=== PATIENT | female | born 1990 | race Caucasian/White ===

== ENCOUNTER 2018-07-15 00:35 | Emergency (ER) | payer OTHER ==
[2018-07-15 02:20] VITALS: BMI 45.9
--- NOTE | 2018-07-15 02:29 | PDOC ---
History of Present Illness - General Chief Complaint: Nausea/Vomiting Stated Complaint: VOMITING, PAIN , Time Seen by Provider: 07/15/18 01:27 History Source: Patient Exam Limitations: No Limitations - History of Present Illness Initial Comments: 07/15/18 02:20 28 yo female (unknown gestational age) pmh asthma, GERD and chronic abdominal pain presents to the ED for 1 month of NB/NB vomiting and 1 day of bloody malodorous vaginal discharge. Pt states she has had multiple sexual partners that i unprotected sex without any form of contraception leading her to take "Plan B" over 1 week past date of intercourse early June. Since then pt complains of Nb/NB vomiting 1-2 episodes a day with decreased appetite and fluid intake. Pt states today she felt sudden onset suprapubic pain described as throbbing and non radiating. pt did not try anything to relieve the pain. Pt admits to scheduling an appointment to have an on 2017. Admits to pain/burning on urination but denies N/V/F/C, changes in bowel habits, Cp, SOB. Past History - Past Medical History Allergies/Adverse Reactions: Allergies Allergy/AdvReac Type Severity Reaction Status Date / Time No Known Allergies Allergy Verified 05/09/13 07:16 Home Medications: Ambulatory Orders Doxylamine Succinate/Vit B6 [Daniel Metzger 10-10 mg Tablet] 1 each PO DAILY #5 tablet. 07/15/18 Anemia: No Asthma: No Cancer: No Cardiac Disorders: No CVA: No COPD: No CHF: No Dementia: No Diabetes: No GI Disorders: Yes (ABD. PAIN) Disorders: No HTN: No Hypercholesterolemia: No Liver Disease: No Seizures: No Thyroid Disease: No - Surgical History Abdominal Surgery: No Appendectomy: No Cardiac Surgery: No Cholecystectomy: No Lung Surgery: No Neurologic Surgery: No Orthopedic Surgery: No - Suicide/Smoking/Psychosocial Hx Smoking Status: No Smoking History: Never smoked Have you smoked in the past 12 months: No Number of Cigarettes Smoked Daily: 0 If you are a former smoker, when did you quit?: 2 MONTHS Information on smoking cessation initiated: No Hx Alcohol Use: No Drug/Substance Use Hx: No Substance Use Type: None Hx Substance Use Treatment: No Review of Systems - Review of Systems Constitutional: No: Chills, Fever, Weakness Respiratory: No: Shortness of Breath Cardiac (ROS): No: Chest Pain ABD/GI: Yes: Nausea, Vomiting (1 month of 1-2 episodes per day NB/NB) : Yes: Other (bloody vaginal discharge on wiping 1x today). No: Burning, Dysuria Musculoskeletal: No: Back Pain Neurological: No: Weakness *Physical Exam - Vital Signs Last Vital Signs Temp Pulse Resp BP Pulse Ox 97.9 F 94 H 18 107/59 L 99 07/15/18 00:35 07/15/18 00:35 07/15/18 00:35 07/15/18 00:35 07/15/18 00:35 - Physical Exam General Appearance: Yes: Nourished, Appropriately Dressed. No: Apparent Distress HEENT: positive: EOMI, DONNA Respiratory/Chest: positive: Lungs Clear, Normal Breath Sounds. negative: Accessory Muscle Use, Crackles, Wheezing Cardiovascular: positive: Regular Rhythm, Regular Rate, S1, S2. negative: Edema , JVD, Murmur Vascular Pulses: Dorsalis-Pedis (R): 3+, Doralis-Pedis (L): 3+ Female Pelvic Exam: positive: cervical os closed, CMT, discharge (bloody). negative: lesions, Bartholin mass Gastrointestinal/Abdominal: positive: Normal Bowel Sounds, Flat, Soft, Tenderness (suprpubic). negative: Pulsatile Mass, Distended, Guarding, Rebound Extremity: positive: Normal Capillary Refill Integumentary: positive: Normal Color, Dry, Warm Neurologic: positive: Fully Oriented, Alert, Normal Mood/Affect Moderate Sedation - Procedure Monitoring Vital Signs: Procedure Monitoring Vital Signs Temperature 97.9 F 07/15/18 00:35 Pulse Rate 94 H 07/15/18 00:35 Respiratory Rate 18 07/15/18 00:35 Blood Pressure 107/59 L 07/15/18 00:35 O2 Sat by Pulse Oximetry (%) 99 07/15/18 00:35 ED Treatment Course - LABORATORY CBC & Chemistry Diagram: 07/15/18 03:10 07/15/18 03:10 - RADIOLOGY Radiology Studies Ordered: Category Date Time Status TRANSVAGINAL US PREG [US] Stat Ultrasound 07/15/18 01:52 Taken Medical Decision Making - Medical Decision Making 28 yo female presents to ED with 1 day of bloody vaginal discharge that is malodorous and suprapubic tenderness. Pt admits to having an planned for Jul 19. DDX: , infection, friable cervix leading to bleeding pelvic US shows 6 weeks 1 day live IUP with HR in the 130s pelvic exam: CMT and bilateral adnexal tenderness. Cervical OS closed. Visible blood covering cervix without lesions in the canal Vitals WNL Blood work non significant prophylactic treatment for GC/Chlam given in the ED pt received 650 mg tylenol for pain which helped with Suprapubic AP Bleeding was 1 episode only with wiping, H and H normal pt not actively bleeding. Pt can be safely discharged and have concerns followed up with [facility] [facility] [employer] 07/15/18 06:33 Zofran given and diclegis sent to pharmacy Pt will follow up with [facility] and will take diclegis as needed. Plan discussed and pt understands and agrees *DC/Admit/Observation/Transfer Diagnosis at time of Disposition: Vaginal bleeding during - Discharge Dispostion Disposition: HOME Condition at time of disposition: Stable Decision to Admit order: No - Prescriptions Prescriptions: Doxylamine Succinate/Vit B6 [Daniel Metzger 10-10 mg Tablet] 1 each PO DAILY #5 tablet.dr - Referrals Referrals: Breanna Cardenas MD [Primary Care Provider] - - Patient Instructions Printed Discharge Instructions: DI for Vaginal Bleeding During Additional Instructions: Please make appointment with your [facility] and Family Doctor within the next 24 hours. You were give 2 antibiotics while in the Emergency Room for prophylactic coverage of possible infection. Please take over the counter Tylenol as needed for pain Return to the emergency room for new or worsening symptoms including but not limited to: continued bleeding, weakness, fatigue, fevers, severe abdominal pain. Thank you - Post Discharge Activity
[2018-07-15] MEDS ORDERED: cefTRIAXone SODIUM 1 GM VIAL ONE (04:01)
[2018-07-15] MEDS ORDERED: ACETAMINOPHEN 325 MG TABLET (FP) PO ONE (04:03)
[2018-07-15] MEDS ORDERED: ACETAMINOPHEN 325 MG TABLET (FP) ONE (04:09)
--- NOTE | 2018-07-15 04:18 | PDOC ---
Attending Attestation - Resident Resident Name: Farhad Cooney - ED Attending Attestation I have performed the following: I have examined & evaluated the patient, The case was reviewed & discussed with the resident, I agree w/resident's findings & plan - HPI HPI: 07/15/18 04:16 28-year-old female LMP about 6 weeks presents with pelvic pain and brown discharge for a few days, no red blood, no fevers or chills, no GI or urinary complaints other than morning nausea. Patient did take plan B likely during this , but weeks after intercourse. - Physicial Exam PE: 07/15/18 04:17 vss, well appearing nad, s1s2 rrr, ctab soft/nd. tender suprapubic region without guarding/rebound, BS nl, no cvat pelvic per res, os closed with dark discharge - Medical Decision Making 07/15/18 04:18 28-year-old female first trimester with cramping and discharge, rule out miscarriage. Type and screen, labs, transvaginal ultrasound, urinalysis On pelvic exam had tender friable cervix, we'll treat empirically for GC/ chlamydia Discharge accordingly with OB follow-up
[2018-07-15 04:30] LABS: BASO % 0.5 % (0-2.0); EOS % 1.1 % (0-4.5); HEMATOCRIT 41.2 % (32.4-45.2); HEMOGLOBIN 14.2 GM/dL (10.7-15.3); LYMPH % 13.4 % (8-40); MCHC 34.3 g/dl (32.0-36.0); MEAN CELL VOLUME 87.4 fl (80-96); MEAN PLT VOLUME 9.4 fl (7.5-11.1); MONO % 4.3 % (3.8-10.2); NEUT % 80.7 % (42.8-82.8); PLATELET COUNT 264 K/MM3 (134-434); RBC 4.72 M/mm3 (3.60-5.2); RDW 13.7 % (11.6-15.6); WHITE BLOOD COUNT 13.8 K/mm3 (4.0-10.0)
[2018-07-15 04:41] LABS: HCG,QUALITATIVE URINE Positive
[2018-07-15 04:50] LABS: URINE APPEARANCE CLOUDY; URINE BILIRUBIN NEGATIVE (<2.0 mg/dL); URINE COLOR LTYELLOW; URINE GLUCOSE (UA) NEGATIVE (NEGATIVE); URINE KETONE NEGATIVE (NEGATIVE); URINE LEUK ESTERASE NEGATIVE (NEGATIVE); URINE NITRITE NEGATIVE (NEGATIVE); URINE PROTEIN NEGATIVE (NEGATIVE); URINE UROBILINOGEN NEGATIVE mg/dL (0.2-1.0)
[2018-07-15 04:56] LABS: ALBUMIN 4.2 g/dl (3.4-5.0); ALK PHOS 66 U/L (45-117); AMORP URATES 3+ /hpf (NONE SEEN); ANION GAP 10 MMOL/L (8-16); BILIRUBIN,TOTAL 0.2 mg/dL (0.2-1); BLOOD UREA NITROGEN 8 mg/dL (7-18); CALCIUM 9.4 mg/dL (8.5-10.1); CHLORIDE 104 mmol/L (98-107); CO2 23 mmol/L (21-32); CREATININE 0.5 mg/dL (0.55-1.3); EPI CELLS FEW /HPF (FEW); GLUCOSE,RANDOM 78 mg/dL (74-106); LIPASE 118 U/L (73-393); SGOT/AST 9 U/L (15-37); SGPT/ALT 18 U/L (13-61); SODIUM 138 mmol/L (136-145); TOT PROT 7.8 g/dl (6.4-8.2); URINE MUCUS RARE
[2018-07-15] MEDS ORDERED: AZITHROMYCIN 500 MG TABLET PO ONE (05:25)
[2018-07-15] MEDS ORDERED: AZITHROMYCIN 500 MG TABLET ONE (05:37)
[2018-07-15] MEDS ORDERED: ONDANSETRON 4 MG TABLET PO ONE (06:29)
[2018-07-15] MEDS ORDERED: ONDANSETRON 8 MG TABLET (FP) PO ONE (06:35)
[2018-07-15 06:37] VITALS: BP 97/48; PULSE 80; TEMP 98.3
== END 2018-07-15 06:43 | disposition home or self-care (01) ==
LOC: JER 00:35
DX: O26.891 Other specified pregnancy related conditions, first trimester (principal); O20.8 Other hemorrhage in early pregnancy; Z3A.01 Less than 8 weeks gestation of pregnancy
CPT/HCPCS: 36415; 76817-TC; 80053; 81003; 81015; 83690; 84702; 84703; 85025; 86850; 86900; 86901; 87086; 87491; 87591; 96372; 99282-25

== ENCOUNTER 2020-04-13 14:28 | Emergency (ER) | payer OTHER ==
[2020-04-13 14:36] VITALS: BMI 29.1
--- NOTE | 2020-04-13 14:43 | PDOC ---
Rapid Medical Evaluation Chief Complaint: Vaginal Bleeding Time Seen by Provider: 04/13/20 14:40 Medical Evaluation: Allergies Allergy/AdvReac Type Severity Reaction Status Date / Time No Known Allergies Allergy Verified 04/13/20 14:30 Vital Signs Temp Pulse Resp BP Pulse Ox 98.6 F 95 H 18 100/55 L 100 04/13/20 14:30 04/13/20 14:30 04/13/20 14:30 04/13/20 14:30 04/13/20 14:30 04/13/20 14:41 HPI 30 year old female 28 weeks gestation with 3 hours of vaginal bleeding and lower abdominal cramping. Denies N/V/D rest of ROS negative PE: Nontender abdomen Plan: Pt to precede to L&D for further treatment and assessment Discharge Disposition - Discharge Dispostion Last Admission D/C Date: 01/24/08 - Referrals Referrals: Sruthi Kovacs MD [Primary Care Provider] - - Patient Instructions - Post Discharge Activity
[2020-04-13] MEDS ORDERED: DEXTROSE 5%-LACTATED RINGERS 500 ML IV SCH (16:15)
[2020-04-13 16:18] VITALS: BP 89/49; PULSE 81; TEMP 98.3
[2020-04-13] MEDS ORDERED: DEXTROSE 5%-LACTATED RINGERS 1,000 ML IV SCH (17:15)
[2020-04-13 17:32] LABS: EPI CELLS 26 /uL (0-25.1); HYALINE CASTS 6 /uL (0-3.1); PH,URINE 6.5 (5.0-8.0); URINE APPEARANCE CLEAR; URINE BACTERIA 900 /uL (0-1359); URINE BILIRUBIN NEGATIVE (NEGATIVE); URINE COLOR YELLOW; URINE GLUCOSE (UA) NEGATIVE (NEGATIVE); URINE KETONE NEGATIVE (NEGATIVE); URINE LEUK ESTERASE 1+ (NEGATIVE); URINE NITRITE NEGATIVE (NEGATIVE); URINE PROTEIN NEGATIVE (NEGATIVE); URINE RBC 4 /uL (0-23.9); URINE WBC 46 /uL (0-25.8)
[2020-04-16] MEDS ORDERED: ELECTROLYTE-148 SOLN 1,000 ML IV SCH (23:30)
--- NOTE | 2020-04-17 07:25 | PD.OB.PROG ---
Past Medical History - Primary Care Physician PCP:: Ita Bruce Documenting Provider Type: Laborist - Admission Chief Complaint: Lower abdoinal pain History of Present Illness: 30 yo , LISA 06/28/20, EGA 29 weeks 2 day presented with the above. No bleeding or leaking of fluid per vagina. Pain started after sexual activity. History Source: Patient Limitations to Obtaining History: No Limitations - Nursing Documentation Nursing Documentation Reviewed: Yes - Past Medical History [employer]ANT: Denies/None Cardio/Vascular: Denies/None Pulmonary: Denies/None Gastrointestinal: Denies/None Hepatobiliary: Denies/None Renal/: Denies/None Reproductive: Denies/None ...: 4 ...Para: 1 ... Weeks Gestation by Dates: 29 Heme/Onc: Denies/None Infectious Disease: Denies/None Psych: Denies/None Musculoskeletal: Denies/None Rheumatology: Denies/None ENT: Denies/None Endocrine: Denies/None Dermatology: Denies/None - Smoking History Smoking history: Former smoker Have you smoked in the past 12 months: Yes Aproximately how many cigarettes per day: 4 If you are a former smoker, when did you quit?: 6 months - Alcohol/Substance Use Hx Alcohol Use: No - Social History Do you think of yourself as: Straight/Heterosexual History of Recent Travel: No Review of Systems - Review of Systems Constitutional: reports: No Symptoms Eyes: reports: No Symptoms HENT: reports: No Symptoms Neck: reports: No Symptoms Cardiovascular: reports: No Symptoms Respiratory: reports: No Symptoms Gastrointestinal: reports: No Symptoms Genitourinary: reports: No Symptoms Breasts: reports: No Symptoms Reported Musculoskeletal: reports: Joint Pain Integumentary: reports: No Symptoms Neurological: reports: No Symptoms Endocrine: reports: No Symptoms Hematology/Lymphatic: reports: No Symptoms Psychiatric: reports: No Symptoms Physical Exam - Obstetrical Constitutional: Yes: Well Nourished Eyes: Yes: WNL HENT: Yes: WNL Neck: Yes: WNL Cardiovascular: Yes: WNL - Abdominal Exam/OB Fundal Height: 29 Number of Fetuses: Single Presentation: Vertex Contractions: No Regularity: Irritability Intensity: Unaware Monitor Mode: External Heart Rate (range): 140 Heart Rate Location: [facility] Category: I Accelerations: Uniform Decelerations: None - Vaginal Exam/OB Vaginal Exam Deferred: No Vaginal Bleeding: No Speculum Exam: No Dilatation (cm): 0 Effacement (%): 25 Amniotic Membrane Status: Intact Presentation: Vertex/Position Station: -3 - Physical Exam Musculoskeletal: Yes: WNL Extremities: Yes: WNL Edema: No Integumentary: Yes: WNL ...Motor Strength: WNL Psychiatric: Yes: WNL Problem List - Problems (1) 29 weeks gestation of Code(s): Z3A.29 - 29 WEEKS GESTATION OF Assessment/Plan Early gestation mot in labor Counseled to discontinue sexual activity till further review Hydration initiated and uterine irritability resolved. Discharge home today Follow up at clinic on 04/16/20 for cervical length assessment Report to L and d immediately if problem recurs. labor precautions given.
--- NOTE | 2020-04-17 12:52 | PD.OB.PROG ---
Past Medical History - Primary Care Physician PCP:: Ita Bruce Documenting Provider Type: Laborist - Admission Chief Complaint: contractions History Source: Patient Limitations to Obtaining History: No Limitations Patient Type: New - Nursing Documentation Nursing Documentation Reviewed: Yes - Past Medical History ...: 4 ...Para: 1 ... Weeks Gestation by Dates: 29 - Smoking History Smoking history: Former smoker Have you smoked in the past 12 months: Yes Aproximately how many cigarettes per day: 4 If you are a former smoker, when did you quit?: 6 months - Alcohol/Substance Use Hx Alcohol Use: No - Social History History of Recent Travel: No Physical Exam - Obstetrical Constitutional: Yes: Well Nourished, No Distress - Abdominal Exam/OB Fundal Height: 32 Number of Fetuses: Single Presentation: Vertex Contractions: Yes Monitor Mode: External Category: I - Vaginal Exam/OB Dilatation (cm): closed Effacement (%): long Amniotic Membrane Status: Intact - Physical Exam Musculoskeletal: Yes: WNL Extremities: Yes: WNL Edema: No Problem List - Problems (1) Labor abnormality, antepartum Problems reviewed: Yes Code(s): O62.9 - ABNORMALITY OF FORCES OF LABOR, UNSPECIFIED (2) 32 weeks gestation of Problems reviewed: Yes Code(s): Z3A.32 - 32 WEEKS GESTATION OF Assessment/Plan iup at 32 week contractions Plan IV fluid bolus
== END 2020-04-13 17:45 | disposition home or self-care (01) ==
LOC: JER 14:28
DX: O26.853 Spotting complicating pregnancy, third trimester (principal)
CPT/HCPCS: 81003; 87086; 99283-25

== ENCOUNTER 2020-06-22 21:40 | Inpatient (IN) | payer OTHER ==
[2020-06-22] MEDS ORDERED: DEXTROSE 5%-LACTATED RINGERS 500 ML IV ONE (22:30)
[2020-06-22] MEDS ORDERED: DEXTROSE 5%-LACTATED RINGERS 1,000 ML IV SCH (23:30)
[2020-06-22] MEDS ORDERED: AMPICILLIN SODIUM 2 GM VIAL ONE (23:43)
[2020-06-22 23:59] VITALS: BMI 25.2
[2020-06-23 00:01] LABS: BASO % 0.4 % (0-2.0); HEMATOCRIT 30.4 % (32.4-45.2); HEMOGLOBIN 10.1 GM/dL (10.7-15.3); LYMPH % 13.6 % (8-40); MCH 26.6 pg (25.7-33.7); MCHC 33.1 g/dl (32.0-36.0); MEAN CELL VOLUME 80.4 fl (80-96); MEAN PLT VOLUME 9.7 fl (7.5-11.1); MONO % 4.7 % (3.8-10.2); NEUT % 80.3 % (42.8-82.8); PLATELET COUNT 146 K/MM3 (134-434); RBC 3.78 M/mm3 (3.60-5.2); RDW 15.5 % (11.6-15.6); WHITE BLOOD COUNT 10.2 K/mm3 (4.0-10.0)
[2020-06-23 00:13] LABS: ACTIVATED PTT 25.3 SECONDS (25.2-36.5)
[2020-06-23] MEDS ORDERED: FENTANYL/BUPIVACAINE/NS/PF - PCEA - 50 ML DISP.SYRIN EP ONE ×2 (00:22→05:40)
[2020-06-23] MEDS ORDERED: PCA PUMP NR ONE ×2 (00:22→07:56)
[2020-06-23 00:23] LABS: INR 1.02 (0.83-1.09); PROTHROMBIN TIME (PATIENT) 12.3 SEC (9.7-13.0)
[2020-06-23] MEDS ORDERED: BUPIVACAINE HCL/PF 0.25% (2.5MG/ML) 10 ML VIAL ONE (00:23)
[2020-06-23 00:31] LABS: POTASSIUM 3.7 mmol/L (3.5-5.1)
[2020-06-23 00:33] LABS: BLOOD UREA NITROGEN 6.4 mg/dL (7-18); CALCIUM 8.1 mg/dL (8.5-10.1)
[2020-06-23 00:37] LABS: CREATININE 0.5 mg/dL (0.55-1.3)
[2020-06-23] MEDS ORDERED: NALOXONE HCL 0.4 MG/ML VIAL IVPUSH PRN (00:44)
[2020-06-23] MEDS ORDERED: FENTANYL/BUPIVACAINE/NS/PF - PCEA - 50 ML DISP.SYRIN EP SCH (00:45)
[2020-06-23] MEDS ORDERED: AMPICILLIN - 2 GM in SODIUM CHLORIDE 100 ML IVPB ONE (01:03)
[2020-06-23] MEDS ORDERED: ELECTROLYTE-148 SOLN 1,000 ML IV SCH (01:15)
[2020-06-23] MEDS ORDERED: ONDANSETRON 4 MG/2 ML VIAL ONE (01:34)
[2020-06-23] MEDS ORDERED: ONDANSETRON 4 MG/2 ML VIAL IVPB ONE (01:45)
[2020-06-23] MEDS ORDERED: AMPICILLIN SODIUM 1 GM VIAL ONE ×2 (03:48→07:04)
[2020-06-23] MEDS: AMPICILLIN - 1 GM in SODIUM CHLORIDE 100 ML IVPB SCH ×3 (04:00→19:59)
[2020-06-23] MEDS ORDERED: OXYTOCIN 30 UNITS in 0.9% NS 30 UNIT/500 ML INFUS.BAG IVPB SCH (06:00)
[2020-06-23] MEDS ORDERED: LIDOCAINE HCL 1% PRESERVATIVE FREE - 30ML VIAL ONE (07:27)
[2020-06-23] MEDS ORDERED: OXYTOCIN 20 UNITS in 0.9% NS 20 UNIT/1,000 ML INFUS.BAG IV ONE ×2 (07:28→09:15)
[2020-06-23] MEDS ORDERED: BISACODYL 10 MG SUPP.RECT RC PRN (07:59)
[2020-06-23] MEDS ORDERED: WITCH HAZEL 50% (TUCKS) 40 PAD/JAR PAD TP PRN (07:59)
[2020-06-23] MEDS ORDERED: BENZOCAINE 20% 57 GM BOTTLE TP PRN (07:59)
[2020-06-23] MEDS ORDERED: BENZOCAINE 28 GM HEMORRHOIDAL OINTMENT TP PRN (07:59)
[2020-06-23] MEDS ORDERED: METHYLERGONOVINE MALEATE 0.2 MG/1 ML AMP IM PRN (07:59)
[2020-06-23] MEDS ORDERED: OXYTOCIN 20 UNITS in 0.9% NS 20 UNIT/1,000 ML INFUS.BAG IV SCH (08:00)
[2020-06-23] MEDS: PRENATAL VITAMINS W/ FOLIC ACID TABLET (FP) PO SCH (10:06)
[2020-06-23] MEDS: IBUPROFEN 600 MG TABLET (FP) PO PRN (10:06)
[2020-06-23] MEDS: ACETAMINOPHEN 325 MG TABLET (FP) PO PRN (10:07)
[2020-06-24] MEDS: IBUPROFEN 600 MG TABLET (FP) PO PRN ×2 (01:15→07:54)
[2020-06-24] MEDS: ACETAMINOPHEN 325 MG TABLET (FP) PO PRN ×2 (01:16→07:55)
[2020-06-24 06:27] VITALS: TEMP 98.2
[2020-06-24 08:08] LABS: BASO % 0.8 % (0-2.0); HEMATOCRIT 27.6 % (32.4-45.2); HEMOGLOBIN 8.9 GM/dL (10.7-15.3); LYMPH % 15.2 % (8-40); MCH 25.9 pg (25.7-33.7); MCHC 32.2 g/dl (32.0-36.0); MEAN CELL VOLUME 80.4 fl (80-96); MEAN PLT VOLUME 10.1 fl (7.5-11.1); PLATELET COUNT 150 K/MM3 (134-434); RBC 3.43 M/mm3 (3.60-5.2); RDW 15.6 % (11.6-15.6); WHITE BLOOD COUNT 14.6 K/mm3 (4.0-10.0)
[2020-06-24] MEDS: PRENATAL VITAMINS W/ FOLIC ACID TABLET (FP) PO SCH (09:17)
[2020-06-24] MEDS ORDERED: DIPHTH,PERTUSS(ACELL),TET 0.5 ML DISP.SYRIN IM ONE (10:00)
[2020-06-24 10:12] VITALS: BP 95/59; PULSE 87
[2020-06-24] MEDS ORDERED: SENNOSIDES/DOCUSATE COMBO (SENNA PLUS) TABLET (UD) PO PRN (22:00)
== END 2020-06-24 12:00 | disposition home or self-care (01) | DRG 560 ==
LOC: JDEL 21:40 → JLDR 23:30 → J3W 06-23 09:25
PROVIDERS: ADMIT Obstetrics & Gynecology; ATTEND Obstetrics & Gynecology
PROC: 10907ZC Drainage of Amniotic Fluid, Therapeutic from Products of Conception, Via Natural or Artificial Opening (ICD-10-PCS; principal; 2020-06-23)
PROC: 0W8NXZZ Division of Female Perineum, External Approach (ICD-10-PCS; 2020-06-23)
PROC: 3E033VJ Introduction of Other Hormone into Peripheral Vein, Percutaneous Approach (ICD-10-PCS; 2020-06-23)
DX: O42.92 Full-term premature rupture of membranes, unspecified as to length of time between rupture and onset of labor (principal); O70.0 First degree perineal laceration during delivery; O99.824 Streptococcus B carrier state complicating childbirth; Z37.0 Single live birth; Z3A.39 39 weeks gestation of pregnancy; Z87.891 Personal history of nicotine dependence; Z86.19 Personal history of other infectious and parasitic diseases; O77.0 Labor and delivery complicated by meconium in amniotic fluid
CPT/HCPCS: 36415; 59025; 59409; 80048; 85025; 85610; 85730; 86780; 86850; 86900; 86901; 87389; 90715; C9803; U0003

== ENCOUNTER 2021-01-22 06:26 | Emergency (ER) | payer OTHER ==
[2021-01-22 06:56] VITALS: BP 110/65; TEMP 99; BMI 22.2
[2021-01-22] MEDS ORDERED: ACETAMINOPHEN 500 MG TABLET (FP) PO ONE (08:07)
[2021-01-22] MEDS ORDERED: ACETAMINOPHEN 500 MG TABLET (FP) ONE (08:11)
[2021-01-22 08:20] VITALS: PULSE 90
== END 2021-01-22 08:44 | disposition home or self-care (01) ==
LOC: JER 06:26
DX: R51.9 Headache, unspecified (principal); Z3A.14 14 weeks gestation of pregnancy; Z11.52 Encounter for screening for COVID-19
CPT/HCPCS: 99283-25; C9803; U0003; U0005

== ENCOUNTER 2021-01-24 20:12 | Emergency (ER) | payer OTHER ==
[2021-01-24 20:17] VITALS: TEMP 97.7; BMI 22.8
[2021-01-24] MEDS ORDERED: METOCLOPRAMIDE HCL INJECTION 10 MG/2 ML VIAL IVPB ONE (21:04)
[2021-01-24] MEDS ORDERED: LACTATED RINGERS SOLUTION 1000 ML INFUS.BAG IV ONE (21:04)
[2021-01-24] MEDS ORDERED: METOCLOPRAMIDE HCL INJECTION 10 MG/2 ML VIAL ONE (21:16)
[2021-01-24] MEDS ORDERED: AMOXICILLIN 500 MG CAPSULE (FP) PO ONE (22:35)
[2021-01-24] MEDS ORDERED: AMOXICILLIN 500 MG CAPSULE (FP) ONE (22:42)
[2021-01-24 22:56] VITALS: BP 102/52; PULSE 94
== END 2021-01-24 22:54 | disposition home or self-care (01) ==
LOC: JER 20:12
PROC: 3E033GC Introduction of Other Therapeutic Substance into Peripheral Vein, Percutaneous Approach (ICD-10-PCS; principal; 2021-01-24)
PROC: 3E033GC Introduction of Other Therapeutic Substance into Peripheral Vein, Percutaneous Approach (ICD-10-PCS; 2021-01-24)
DX: R51.9 Headache, unspecified (principal); J01.10 Acute frontal sinusitis, unspecified; Z3A.15 15 weeks gestation of pregnancy
CPT/HCPCS: 99284-25

== ENCOUNTER 2021-06-29 15:25 | Inpatient (IN) | payer OTHER ==
[2021-06-29] MEDS ORDERED: DEXTROSE 5%-LACTATED RINGERS 500 ML IV SCH ×2 (17:15→18:15)
[2021-06-29 17:55] VITALS: BMI 26.0
[2021-06-29] MEDS ORDERED: CITRIC ACID/SODIUM CITRATE 30 ML UNIT-DOSE CUP PO ONE (18:00)
[2021-06-29 18:19] LABS: BASO % 0.4 % (0-2.0); HEMOGLOBIN 9.4 GM/dL (10.7-15.3); LYMPH % 12.4 % (8-40); MCH 24.3 pg (25.7-33.7); MCHC 32.3 g/dl (32.0-36.0); MEAN CELL VOLUME 75.3 fl (80-96); MONO % 5.4 % (3.8-10.2); NEUT % 80.8 % (42.8-82.8); PLATELET COUNT 130 10^3/uL (134-434); RBC 3.85 M/mm3 (3.60-5.2)
[2021-06-29 18:28] LABS: INR 1.01 (0.83-1.09); PROTHROMBIN TIME (PATIENT) 11.3 SEC (9.7-13.0)
[2021-06-29 18:30] LABS: ACTIVATED PTT 24.9 SECONDS (25.2-36.5)
[2021-06-29] MEDS ORDERED: ELECTROLYTE-148 SOLN 1,000 ML IV SCH (18:30)
[2021-06-29 18:39] LABS: BLOOD UREA NITROGEN 7.1 mg/dL (7-18); CALCIUM 8.3 mg/dL (8.5-10.1)
[2021-06-29 18:42] LABS: CREATININE 0.4 mg/dL (0.55-1.3)
[2021-06-29] MEDS ORDERED: ACETAMINOPHEN INJECTION 100 ML IVPB ONE (18:47)
[2021-06-29] MEDS ORDERED: OXYTOCIN 20 UNITS in 0.9% NS 20 UNIT/1,000 ML INFUS.BAG IV ONE ×2 (18:47→21:10)
[2021-06-29] MEDS ORDERED: ePHEDrine SULFATE 50 MG/1 ML AMPULE ONE (19:02)
[2021-06-29] MEDS ORDERED: ceFAZolin SODIUM 1 GM VIAL ONE (19:04)
[2021-06-29] MEDS ORDERED: ONDANSETRON 4 MG/2 ML VIAL ONE (19:18)
[2021-06-29] MEDS ORDERED: BENZOCAINE 20% 57 GM BOTTLE TP PRN (19:47)
[2021-06-29] MEDS ORDERED: ACETAMINOPHEN 325 MG TABLET (FP) PO PRN (19:47)
[2021-06-29] MEDS ORDERED: IBUPROFEN 800 MG/8 ML IJ IVPB PRN (19:47)
[2021-06-29] MEDS ORDERED: WITCH HAZEL 50% (TUCKS) 40 PAD/JAR PAD TP PRN (19:47)
[2021-06-29] MEDS ORDERED: BENZOCAINE 28 GM HEMORRHOIDAL OINTMENT TP PRN (19:47)
[2021-06-29] MEDS ORDERED: METHYLERGONOVINE MALEATE 0.2 MG/1 ML AMP IM PRN (19:47)
[2021-06-29] MEDS ORDERED: ONDANSETRON 4 MG/2 ML VIAL IVPUSH PRN (19:52)
[2021-06-29] MEDS ORDERED: OXYTOCIN 20 UNITS in 0.9% NS 20 UNIT/1,000 ML INFUS.BAG IV SCH (20:00)
[2021-06-29 20:08] LABS: METHADONE, UR NEGATIVE (NEGATIVE)
[2021-06-29 20:09] LABS: COCAINE, UR NEGATIVE (NEGATIVE); PHENCYCLIDINE,URINE NEGATIVE (NEGATIVE); URINE BARBITURATES NEGATIVE (NEGATIVE); URINE BENZODIAZEPINES NEGATIVE (NEGATIVE)
[2021-06-29 20:19] LABS: OPIATES, URI NEGATIVE (NEGATIVE); URINE AMPHETAMINES NEGATIVE (NEGATIVE)
[2021-06-30 07:06] LABS: BASO % 0.4 % (0-2.0); EOS % 0.7 % (0-4.5); HEMATOCRIT 28.2 % (32.4-45.2); HEMOGLOBIN 8.9 GM/dL (10.7-15.3); LYMPH % 13.2 % (8-40); MCH 23.9 pg (25.7-33.7); MCHC 31.5 g/dl (32.0-36.0); MEAN CELL VOLUME 75.8 fl (80-96); MEAN PLT VOLUME 9.5 fl (7.5-11.1); MONO % 6.9 % (3.8-10.2); NEUT % 78.8 % (42.8-82.8); PLATELET COUNT 134 10^3/uL (134-434); RBC 3.72 M/mm3 (3.60-5.2); RDW 18.2 % (11.6-15.6); WHITE BLOOD COUNT 11.6 K/mm3 (4.0-10.0)
[2021-06-30] MEDS ORDERED: oxyCODONE HCL 5 MG TABLET PO PRN ×2 (07:47)
[2021-06-30] MEDS: PRENATAL VITAMINS W/ FOLIC ACID TABLET (FP) PO SCH (09:14)
[2021-06-30] MEDS: FERROUS SO4 325 MG TABLET (FP) PO SCH ×2 (09:14→16:57)
[2021-06-30] MEDS ORDERED: BISACODYL 10 MG SUPP.RECT RC PRN (19:47)
[2021-06-30] MEDS: SIMETHICONE 80 MG TAB.CHEW (FP) PO PRN (20:49)
[2021-06-30] MEDS: SENNOSIDES/DOCUSATE COMBO (SENNA PLUS) TABLET (UD) PO PRN (20:49)
[2021-06-30] MEDS: IBUPROFEN 600 MG TABLET (FP) PO PRN (20:53)
[2021-07-01] MEDS: IBUPROFEN 600 MG TABLET (FP) PO PRN ×2 (10:28→22:04)
[2021-07-01] MEDS: PRENATAL VITAMINS W/ FOLIC ACID TABLET (FP) PO SCH (10:28)
[2021-07-01] MEDS: FERROUS SO4 325 MG TABLET (FP) PO SCH ×2 (10:28→19:46)
[2021-07-01] MEDS: SIMETHICONE 80 MG TAB.CHEW (FP) PO PRN ×2 (10:29→22:04)
[2021-07-01] MEDS: SENNOSIDES/DOCUSATE COMBO (SENNA PLUS) TABLET (UD) PO PRN (22:04)
[2021-07-02 08:29] LABS: BASO % 0.5 % (0-2.0); EOS % 2.2 % (0-4.5); HEMATOCRIT 30.9 % (32.4-45.2); HEMOGLOBIN 9.9 GM/dL (10.7-15.3); LYMPH % 18.7 % (8-40); MCH 24.2 pg (25.7-33.7); MEAN CELL VOLUME 75.5 fl (80-96); MEAN PLT VOLUME 9.1 fl (7.5-11.1); MONO % 5.6 % (3.8-10.2); PLATELET COUNT 170 10^3/uL (134-434); RBC 4.09 M/mm3 (3.60-5.2); RDW 18.5 % (11.6-15.6); WHITE BLOOD COUNT 12.2 K/mm3 (4.0-10.0)
[2021-07-02] MEDS: FERROUS SO4 325 MG TABLET (FP) PO SCH (09:44)
[2021-07-02] MEDS: PRENATAL VITAMINS W/ FOLIC ACID TABLET (FP) PO SCH (09:44)
[2021-07-02 10:33] VITALS: BP 97/62; PULSE 89; TEMP 98.1
== END 2021-07-02 12:45 | disposition home or self-care (01) | DRG 540 ==
LOC: JDEL 15:25 → JLDR 17:30 → J3W 21:50
PROVIDERS: ADMIT Obstetrics & Gynecology; ATTEND Obstetrics & Gynecology
PROC: 10D00Z1 Extraction of Products of Conception, Low, Open Approach (ICD-10-PCS; principal; 2021-06-29)
DX: O76 Abnormality in fetal heart rate and rhythm complicating labor and delivery (principal); O36.8130 Decreased fetal movements, third trimester, not applicable or unspecified; Z3A.38 38 weeks gestation of pregnancy; Z37.0 Single live birth
CPT/HCPCS: 36415; 76819-TC; 80048; 80307; 85025; 85610; 85730; 86780; 86850; 86880; 86900; 86901; 88307-TC; C9803; J0131; U0003; U0005

== ENCOUNTER 2023-01-21 11:55 | Emergency (ER) | payer OTHER ==
[2023-01-21 12:14] VITALS: BP 102/66; PULSE 88; RESP 18; TEMP 98.3; BMI 30.2
[2023-01-21] MEDS ORDERED: SODIUM CHLORIDE 1,000 ML IV STA (12:23)
[2023-01-21 13:34] LABS: BASO % 0.3 % (0-2.0); EOS % 0.4 % (0-4.5); HEMATOCRIT 40.8 % (32.4-45.2); HEMOGLOBIN 13.1 GM/dL (10.7-15.3); LYMPH % 10.2 % (8-40); MCH 27.3 pg (25.7-33.7); MCHC 32.2 g/dl (32.0-36.0); MEAN CELL VOLUME 84.7 fl (80-96); MEAN PLT VOLUME 10.1 fl (7.5-11.1); MONO % 3.4 % (3.8-10.2); NEUT % 85.7 % (42.8-82.8); PLATELET COUNT 243 10^3/uL (134-434); RBC 4.82 M/mm3 (3.60-5.2); RDW 14.7 % (11.6-15.6); WHITE BLOOD COUNT 12.9 K/mm3 (4.0-10.0)
[2023-01-21 13:36] LABS: EPI CELLS >36 /uL (0-25.1); HYALINE CASTS 5 /uL (0-3.1); URINE APPEARANCE CLOUDY; URINE BACTERIA 3493 /uL (0-1359); URINE BILIRUBIN NEGATIVE (NEGATIVE); URINE COLOR YELLOW; URINE GLUCOSE (UA) NEGATIVE (NEGATIVE); URINE KETONE TRACE (NEGATIVE); URINE LEUK ESTERASE 2+ (NEGATIVE); URINE NITRITE NEGATIVE (NEGATIVE); URINE PROTEIN TRACE (NEGATIVE); URINE RBC 30 /uL (0-23.9); URINE WBC 201 /uL (0-25.8)
[2023-01-21 13:38] LABS: HCG,QUALITATIVE URINE Positive
[2023-01-21 13:49] LABS: POTASSIUM 4.3 mmol/L (3.5-5.1)
[2023-01-21 13:50] LABS: CALCIUM 9.3 mg/dL (8.5-10.1)
[2023-01-21 13:51] LABS: BLOOD UREA NITROGEN 6.2 mg/dL (7-18)
[2023-01-21 13:54] LABS: CREATININE 0.4 mg/dL (0.55-1.3)
[2023-01-21 14:01] LABS: INR 1.05 (0.83-1.09); PROTHROMBIN TIME (PATIENT) 12.2 SEC (9.7-13.0)
[2023-01-21 14:03] LABS: ACTIVATED PTT 26.5 SECONDS (25.2-36.5)
== END 2023-01-21 16:34 | disposition home or self-care (01) ==
LOC: JER 11:55
PROC: 3E0337Z Introduction of Electrolytic and Water Balance Substance into Peripheral Vein, Percutaneous Approach (ICD-10-PCS; principal; 2023-01-21)
DX: R10.30 Lower abdominal pain, unspecified (principal); O20.9 Hemorrhage in early pregnancy, unspecified; O23.91 Unspecified genitourinary tract infection in pregnancy, first trimester; R82.71 Bacteriuria; Z3A.09 9 weeks gestation of pregnancy
CPT/HCPCS: 36415; 76801-TC; 80048; 81003; 84702; 84703; 85025; 85610; 85730; 86850; 86900; 86901; 87086; 99284-25

== ENCOUNTER 2023-03-21 00:29 | Emergency (ER) | payer OTHER ==
[2023-03-21 00:37] VITALS: BMI 24.8
[2023-03-21 03:08] LABS: BASO % 0.4 % (0-2.0); EOS % 2.4 % (0-4.5); HEMATOCRIT 32.4 % (32.4-45.2); HEMOGLOBIN 10.9 GM/dL (10.7-15.3); MCH 27.9 pg (25.7-33.7); MCHC 33.7 g/dl (32.0-36.0); MEAN CELL VOLUME 82.8 fl (80-96); MEAN PLT VOLUME 9.6 fl (7.5-11.1); MONO % 6.4 % (3.8-10.2); NEUT % 73.8 % (42.8-82.8); PLATELET COUNT 223 10^3/uL (134-434); RBC 3.92 M/mm3 (3.60-5.2); WHITE BLOOD COUNT 12.1 K/mm3 (4.0-10.0)
[2023-03-21 03:25] LABS: INR 1.03 (0.83-1.09); POTASSIUM 3.8 mmol/L (3.5-5.1); PROTHROMBIN TIME (PATIENT) 11.9 SEC (9.7-13.0)
[2023-03-21 03:27] LABS: ALBUMIN 2.7 g/dl (3.4-5.0); CALCIUM 8.3 mg/dL (8.5-10.1)
[2023-03-21 03:28] LABS: ACTIVATED PTT 25.8 SECONDS (25.2-36.5)
[2023-03-21 03:30] LABS: CREATININE 0.3 mg/dL (0.55-1.3)
[2023-03-21 03:32] LABS: BILIRUBIN,TOTAL 0.1 mg/dL (0.2-1); TOT PROT 6.6 g/dl (6.4-8.2)
[2023-03-21 06:56] VITALS: BP 99/60; PULSE 74; RESP 16; TEMP 98.2
[2023-03-21 07:58] LABS: URINE APPEARANCE CLEAR; URINE BILIRUBIN NEGATIVE (NEGATIVE); URINE COLOR YELLOW; URINE GLUCOSE (UA) NEGATIVE (NEGATIVE); URINE KETONE NEGATIVE (NEGATIVE); URINE LEUK ESTERASE NEGATIVE (NEGATIVE); URINE NITRITE NEGATIVE (NEGATIVE); URINE PROTEIN NEGATIVE (NEGATIVE); URINE UROBILINOGEN 0.2 mg/dL (0.2-1.0)
== END 2023-03-21 06:58 | disposition home or self-care (01) ==
LOC: JER 00:29
DX: O26.892 Other specified pregnancy related conditions, second trimester (principal); R87.9 Unspecified abnormal finding in specimens from female genital organs; Z3A.17 17 weeks gestation of pregnancy
CPT/HCPCS: 36415; 76815-TC; 80053; 81003; 84702; 85025; 85610; 85730; 86850; 86900; 86901; 87086; 99284-25

== ENCOUNTER 2023-08-25 09:25 | Inpatient (IN) | payer OTHER ==
[2023-08-25 11:11] LABS: BASO % 0.8 % (0-2.0); EOS % 1.4 % (0-4.5); HEMATOCRIT 33.2 % (32.4-45.2); HEMOGLOBIN 10.5 GM/dL (10.7-15.3); LYMPH % 21.7 % (8-40); MCH 24.2 pg (25.7-33.7); MCHC 31.6 g/dl (32.0-36.0); MEAN CELL VOLUME 76.7 fl (80-96); MEAN PLT VOLUME 9.7 fl (7.5-11.1); MONO % 5.3 % (3.8-10.2); NEUT % 70.8 % (42.8-82.8); PLATELET COUNT 160 10^3/uL (134-434); RBC 4.33 M/mm3 (3.60-5.2); RDW 21.2 % (11.6-15.6); WHITE BLOOD COUNT 9.7 K/mm3 (4.0-10.0)
[2023-08-25 11:15] LABS: INR 1.04 (0.83-1.09); PROTHROMBIN TIME (PATIENT) 12.1 SEC (9.7-13.0)
[2023-08-25 11:17] LABS: ACTIVATED PTT 24.7 SECONDS (25.2-36.5)
[2023-08-25] MEDS ORDERED: ELECTROLYTE-148 SOLN 500 ML IV ONE (11:19)
[2023-08-25 11:25] LABS: POTASSIUM 3.8 mmol/L (3.5-5.1)
[2023-08-25 11:28] LABS: CALCIUM 9.3 mg/dL (8.5-10.1)
[2023-08-25 11:29] LABS: BLOOD UREA NITROGEN 8.1 mg/dL (7-18)
[2023-08-25 11:30] VITALS: BMI 28.3
[2023-08-25] MEDS ORDERED: IBUPROFEN 800 MG/8 ML IJ IVPB PRN (11:30)
[2023-08-25 11:32] LABS: CREATININE 0.4 mg/dL (0.55-1.3)
[2023-08-25] MEDS: ELECTROLYTE-148 SOLN 1,000 ML IV SCH (12:40)
[2023-08-25] MEDS ORDERED: LIGASURE IMPACT TP ONE (13:12)
[2023-08-25] MEDS ORDERED: morphine SULFATE/PF 1 MG/2 ML (2cc Syringe - QUVA) ONE (13:27)
[2023-08-25] MEDS ORDERED: ceFAZolin SODIUM 1 GM VIAL ONE (13:27)
[2023-08-25] MEDS ORDERED: FENTANYL CITRATE/PF 50 MCG/ML VIAL ONE (13:27)
[2023-08-25] MEDS ORDERED: OXYTOCIN 10 UNITS/ML VIAL ONE (13:27)
[2023-08-25] MEDS ORDERED: ONDANSETRON 4 MG/2 ML VIAL ONE (13:27)
[2023-08-25] MEDS ORDERED: KETOROLAC TROMETHAMINE 30 MG/1 ML VIAL ONE (13:27)
[2023-08-25] MEDS ORDERED: OXYTOCIN 20 UNITS in 0.9% NS 20 UNIT/1,000 ML INFUS.BAG IV ONE (15:57)
[2023-08-25] MEDS: OXYTOCIN 20 UNITS in 0.9% NS 20 UNIT/1,000 ML INFUS.BAG IV SCH ×2 (16:00→22:52)
[2023-08-25 18:05] VITALS: RESP 18
[2023-08-25] MEDS ORDERED: oxyCODONE HCL 5 MG TABLET PO PRN (23:30)
[2023-08-26 07:38] LABS: BASO % 0.4 % (0-2.0); EOS % 0.8 % (0-4.5); HEMATOCRIT 29.7 % (32.4-45.2); HEMOGLOBIN 9.8 GM/dL (10.7-15.3); LYMPH % 12.6 % (8-40); MCH 25.2 pg (25.7-33.7); MEAN CELL VOLUME 76.3 fl (80-96); MEAN PLT VOLUME 9.1 fl (7.5-11.1); MONO % 5.6 % (3.8-10.2); NEUT % 80.6 % (42.8-82.8); PLATELET COUNT 118 10^3/uL (134-434); RBC 3.89 M/mm3 (3.60-5.2); RDW 20.6 % (11.6-15.6)
[2023-08-26] MEDS ORDERED: BISACODYL 10 MG SUPP.RECT RC PRN (11:30)
[2023-08-26] MEDS: SIMETHICONE 80 MG TAB.CHEW (FP) PO PRN ×2 (12:15→20:39)
[2023-08-26] MEDS: IBUPROFEN 600 MG TABLET (FP) PO PRN ×2 (13:43→20:39)
[2023-08-26] MEDS: ELECTROLYTE-148 SOLN 1,000 ML IV SCH (13:46)
[2023-08-26] MEDS: OXYTOCIN 20 UNITS in 0.9% NS 20 UNIT/1,000 ML INFUS.BAG IV SCH (13:49)
[2023-08-27] MEDS: SIMETHICONE 80 MG TAB.CHEW (FP) PO PRN (13:17)
[2023-08-27] MEDS: ACETAMINOPHEN 325 MG TABLET (FP) PO PRN ×2 (13:17→22:33)
[2023-08-28] MEDS: SIMETHICONE 80 MG TAB.CHEW (FP) PO PRN (07:36)
[2023-08-28] MEDS: ACETAMINOPHEN 325 MG TABLET (FP) PO PRN (07:36)
[2023-08-28 08:17] LABS: BASO % 0.9 % (0-2.0); EOS % 2.7 % (0-4.5); HEMATOCRIT 33.6 % (32.4-45.2); HEMOGLOBIN 10.6 GM/dL (10.7-15.3); LYMPH % 24.8 % (8-40); MCH 24.1 pg (25.7-33.7); MCHC 31.6 g/dl (32.0-36.0); MEAN CELL VOLUME 76.2 fl (80-96); MEAN PLT VOLUME 9.1 fl (7.5-11.1); MONO % 6.1 % (3.8-10.2); NEUT % 65.5 % (42.8-82.8); PLATELET COUNT 161 10^3/uL (134-434); RBC 4.41 M/mm3 (3.60-5.2); RDW 20.2 % (11.6-15.6); WHITE BLOOD COUNT 9.2 K/mm3 (4.0-10.0)
[2023-08-28 08:57] VITALS: BP 113/70; PULSE 67; TEMP 97.9
== END 2023-08-28 13:13 | disposition home or self-care (01) | DRG 540 ==
LOC: JLDR 09:25 → J3W 17:35
PROVIDERS: ADMIT Student in an Organized Health Care Education/Training Program; ATTEND Student in an Organized Health Care Education/Training Program
PROC: 10D00Z1 Extraction of Products of Conception, Low, Open Approach (ICD-10-PCS; principal; 2023-08-25)
PROC: 0UB70ZZ Excision of Bilateral Fallopian Tubes, Open Approach (ICD-10-PCS; 2023-08-25)
DX: O34.211 Maternal care for low transverse scar from previous cesarean delivery (principal); N85.8 Other specified noninflammatory disorders of uterus; Z3A.39 39 weeks gestation of pregnancy; Z30.2 Encounter for sterilization; Z37.0 Single live birth
CPT/HCPCS: 36415; 80048; 85025; 85610; 85730; 86780; 86850; 86900; 86901; 88305-TC; 88307-TC; 94010